=== PATIENT | female | born 1935 | race Caucasian/White ===

== ENCOUNTER 2022-01-25 04:15 | Observation (INO) | payer MEDICARE, SELFPAY ==
[2022-01-25] VITALS (18 sets, daily range): BP systolic 119–147; BP diastolic 50–83; PULSE 81–126; RESP 12–28; TEMP 36.1–36.6; O2SAT 93–100; BMI 26.0
--- NOTE | ~2022-01-25 | XR_ITS ---
EXAMINATION: XR chest 1V portable DATE: 01/25/2022 05:00 INDICATION: Shortness of breath. TECHNIQUE: A single frontal view of the chest was obtained. COMPARISON: Chest 2 views 03/26/2018, chest CT 01/25/2022 FINDINGS: Again seen is elevation of right hemidiaphragm. There is mild atelectasis at the lung bases . A calcified left lung nodule is consistent with old granulomatous disease. No pleural effusion or p neumothorax. The heart size is normal. There is a large hiatal hernia. IMPRESSION: 1. Mild atelectasis at the lung bases. 2. Large hiatal hernia. 3. Chronic elevation of right hemidiaphragm. Reviewed, dictated and finalized at location A.
--- NOTE | ~2022-01-25 | US_ITS ---
US abdomen limited DATE: 01/27/2022 14:54 INDICATION: Elevated lactic acid. Possible gallstones; high density material reported in the dependen t aspect of the gallbladder which may represent gallstones or sludge on 01/22/2022 CT abdomen pelvis e xamination. TECHNIQUE: Real-time imaging and Doppler analysis of liver, pancreas, gallbladder COMPARISON: 01/22/2022 CT abdomen pelvis FINDINGS: No hepatic or pancreatic space-occupying mass lesion is evident. No gallstones or gallbladd er wall thickening or abnormal pericholecystic fluid collection is detected. Negative sonographic Mur phy's sign. The common bile duct measures up to 3.7 mm, normal. IMPRESSION: No significant abnormality Reviewed, dictated and finalized at Location A. Reviewed, dictated and finalized at location A. IMPRESSION: No significant abnormality
--- NOTE | ~2022-01-25 | CT_ITS ---
EXAMINATION: CT brain wo con DATE: 01/25/2022 05:29 INDICATION: Face injury. TECHNIQUE: Computed tomography (CT) of the head was performed without intravenous contrast. The mA wa s adjusted according to patient size. Iterative reconstruction technique was employed. The dose-lengt h product was 605.33 mGy-cm. COMPARISON: None FINDINGS: There are scattered areas of low attenuation in the cerebral white matter. There is no intr acranial hemorrhage, acute infarction, or abnormal intracranial mass lesion. The ventricles are bibiana l in size. There are likely changes of ocular lens replacement surgeries. There is mild mucosal thick ening in the paranasal sinuses. The mastoid air cells are normal. IMPRESSION: 1. Extensive nonspecific cerebral white matter disease, which likely represents chronic small vessel ischemic disease. Reviewed, dictated and finalized at location A.
--- NOTE | ~2022-01-25 | CT_ITS ---
EXAMINATION: CT abdomen pelvis wo con DATE: 01/26/2022 13:14 INDICATION: Elevated lactic acid TECHNIQUE: Computed tomography (CT) of the abdomen and pelvis was performed without intravenous contr ast. The dose-length product was 598.75 mGy-cm. Automated exposure control and iterative reconstruction technique were employed. COMPARISON: 11/07/2011. FINDINGS: Lung bases are unremarkable. No significant pleural or pericardial effusion. Large hiatal h ernia. There is atherosclerosis of the aorta. Colonic diverticulosis without evidence for diverticuli tis. There is a ventral hernia containing nonobstructed colon. The hernia is located below the umbili cus. No obstruction. There is atherosclerosis of the aorta without aneurysm. The celiac axis and SMA are patent. The renal arteries are patent. There are chronic superior endplate compression deformitie s of T9, T10 and T11. There is severe lumbar spondylosis with levoscoliosis. The liver, spleen, pancreas, adrenal glands and kidneys are unremarkable. Colonic diverticulosis with out evidence for diverticulitis. Gallbladder is present. No free air or free fluid. There is high den sity material dependently in the gallbladder which may represent stones or sludge. IMPRESSION: 1. Large hiatal hernia. 2: Infraumbilical ventral hernia containing nonobstructed colon. 3: High density material dependently in the gallbladder may represent gallstones or sludge. Reviewed, dictated and finalized at location A. IMPRESSION: 1. Large hiatal hernia. 2: Infraumbilical ventral hernia containing nonobstructed colon. 3: High density material dependently in the gallbladder may represent gallstone s or sludge.
--- NOTE | ~2022-01-25 | CT_ITS ---
EXAMINATION: CTA chest PE protocol DATE: 01/25/2022 05:30 INDICATION: Hypoxia and tachycardia TECHNIQUE: Computed tomography angiography (CTA) of the chest was performed with 100 mL Omnipaque-350 intravenous contrast timed to evaluate the pulmonary arteries. Coronal maximum intensity projection 3D-reconstructions were created by the technologist. The dose-length product (DLP) was 361.22 mGy-cm. Automated exposure control and iterative reconstruction technique were employed. COMPARISON: 03/26/2018 FINDINGS: The pulmonary arteries are well-opacified. No pulmonary embolism is identified. There is ch ronic elevation of the right hemidiaphragm. There is a large hiatal hernia containing the entire stom ach and the tail of the pancreas. No pathologically enlarged thoracic lymph nodes are identified. The heart size is normal. The lungs are free of focal airspace opacities. No pleural effusion or pneumot horax. There is severe thoracic spondylosis. Stable chronic compression fractures are noted. IMPRESSION: 1. No pulmonary embolism or acute cardiopulmonary abnormality. Reviewed, dictated and finalized at location A.
--- NOTE | 2022-01-25 04:24 | ECG_ITS ---
Measurements Intervals [place] Rate: 102 P: 66 W[place]: 196 QRS: 39 QRSD: 74 T: 255 QT: 301 QTc: 393 Interpretive Statements SINUS TACHYCARDIA NONSPECIFIC ST & T-WAVE ABNORMALITY- LAT/HIGH LAT LEADS BASELINE ARTIFACT- I, II, III, AVR, AVL, AVF, V1-V6 BORDERLINE ECG NO PREVIOUS ECG AVAILABLE FOR COMPARISON Electronically Signed On 01-25-2022 6:35:48 CDT by Leonides Mendez D.O.
[2022-01-25 04:39] LABS: Basophils Absolute Auto 0.1 K/mm3 (0.0-0.1); Basophils Percent Auto 1.1 % (0.2-1.2); Eosinophils Absolute Auto 0.6 K/mm3 (0-0.3); Eosinophils Percent Auto 5.1 % (0-4.4); Hematocrit 43.9 % (37.0-47.0); Hemoglobin 13.7 g/dL (12.0-15.0); Immature Granulocyte Absolute 0.05 K/mm3 (0.00-0.031); Immature Granulocyte Percent A 0.4 % (0-0.5); Lymphocytes Absolute Auto 3.32 K/mm3 (0.9-3.2); Lymphocytes Percent Auto 29.5 % (18.3-44.2); Mean Corpuscular HGB Conc 31.2 g/dl (32-36); Mean Corpuscular Hemoglobin 30.2 pg (26-34); Mean Corpuscular Volume 96.9 fl (80-100); Mean Platelet Volume 10.3 fl (7.4-10.4); Monocytes Absolute Auto 0.7 K/mm3 (0.1-0.6); Monocytes Percent Auto 6.4 % (2.6-8.5); Neutrophils Absolute Auto 6.5 K/mm3 (1.3-6.7); Neutrophils Percent Auto 57.5 % (45.5-73.1); Platelet Count Result 206 k/mm3 (150-375); Red Blood Count 4.53 M/mm3 (4.2-5.4); Red Cell Distribution Width 13.9 % (11.5-14.5); White Blood Count 11.3 K/mm3 (4.5-10.0)
[2022-01-25 04:48] LABS: Alanine Aminotransferase 16 U/L (6-35); Alkaline Phosphatase 65 U/L (38-126); Anion Gap 8 mmol/L (8-16); Aspartate Amino Transferase 23 U/L (14-36); Bilirubin,Total 0.5 mg/dL (0.2-1.3); Blood Urea Nitrogen 18 mg/dL (7-17); Calcium 9.3 mg/dL (8.4-10.2); Carbon Dioxide 25 mmol/L (22-30); Chloride 105 mmol/L (98-107); Estimated CRCL calculation 39 ml/min; Estimated Glomerular Filt Rate > 60; Glucose 128 mg/dL (65-110); Potassium 4.2 mmol/L (3.4-5.0); Sodium 138 mmol/L (137-145)
[2022-01-25 05:00] LABS: NT Pro B Type Natriuretic Pept 111 pg/mL (5-100); Troponin I < 0.012 ng/mL (0.000-0.034)
[2022-01-25 05:15] LABS: SARS-CoV-2 RNA PCR Negative
[2022-01-25] MEDS: LACTATED RINGERS 1,000 ML 999 ML IV CONT (06:21)
--- NOTE | 2022-01-25 06:50 | ED.SOB ---
HPI - SOB/Dyspnea General Chief Complaint: Shortness of Breath/Dyspnea Stated Complaint: SOB Time Seen by Provider: 01/25/22 04:26 History of Present Illness HPI Narrative: 86-year-old female presents with acute onset shortness of breath several hours prior to arrival here, she was hypoxic when she arrived here and felt as if she cannot breathe. Denies any recent cough, fevers or chills, no real chest pain though does endorse some tightness, no focal numbness or weakness. No swelling in her legs Related Data Home Medications Medication Instructions Recorded Confirmed amitriptyline 75 mg tablet 75 mg PO HS 01/25/22 01/25/22 cyanocobalamin (vitamin B-12) 1,000 mcg PO DAILY 01/25/22 01/25/22 1,000 mcg tablet donepezil 5 mg tablet 5 mg PO DAILY 01/25/22 01/25/22 ergocalciferol (vitamin D2) 1,250 50,000 unit PO WEEKLY 01/25/22 01/25/22 mcg (50,000 unit) capsule gabapentin 800 mg tablet 800 mg PO DAILY 01/25/22 01/25/22 levothyroxine 100 mcg tablet 100 mcg PO DIRECTED 01/25/22 01/25/22 lisinopril 10 mg tablet 10 mg PO BID 01/25/22 01/25/22 prednisone 5 mg tablet 5 mg PO DAILY 01/25/22 01/25/22 ropinirole 1 mg tablet 1 mg PO HS 01/25/22 01/25/22 tramadol 50 mg tablet 50 mg PO HS 01/25/22 01/25/22 trazodone 50 mg tablet 50 mg PO HS 01/25/22 01/25/22 Allergies Allergy/AdvReac Type Severity Reaction Status Date / Time No Known Allergies Allergy Unknown Verified 01/25/22 07:28 Review of Systems Review of Systems: CONST: No fever. HEENT: No sore throat C/V: No chest pain RESP: Difficulty breathing GI: No nausea or vomiting : No dysuria. M/S: No joint pain. SKIN: No rash. NEURO: [No headache or focal numbness or weakness] PSYCH: [No depression] [facility] Past Medical History Medical History (Updated 01/25/22 @ 20:49 by Salima Zaragoza MD) Anemia Dementia Hypertension Hypothyroidism Macular degeneration Neuropathy Pneumonia Restless leg syndrome Vitamin D deficiency Surgical History Surgical History (Updated 01/25/22 @ 14:38 by Adrianne Gregg NP) H/O cataract extraction H/O colonoscopy H/O: hemorrhoidectomy H/O: hysterectomy History of back surgery History of bilateral knee replacement History of bladder surgery Family History Family History (Updated 01/25/22 @ 14:40 by Adrianne Gregg NP) Father Typhoid fever Sibling Throat cancer Brother Acute myocardial infarction Sister Mother Stomach cancer Social History Social History Smoking status: Never smoker Alcohol intake: never Substance use: never Substance use type: does not use Spiritual care concerns: No Exam Narrative: EXAMINATION OF ORGAN SYSTEMS/BODY AREAS: Constitutional: Vital signs per nursing GENERAL: Dyspneic HEAD: Normal with no signs of head trauma. EYES: EOMI, conjunctiva normal ENT: Hearing grossly intact LUNGS: Labored respirations, clear lungs HEART: [Regular rate and rhythm] ABD: [Soft], [nontender to palpation] EXT: Normal range of motion SKIN: [No rashes or lesions.] NEURO: [Alert and oriented x 3. No gross focal sensory or strength deficits.] PSYCH: Normal affect Course Vital Signs Vital signs: Vital Signs Temperature 97.6 F 01/25/22 04:16 Pulse Rate 117 H 01/25/22 04:16 Respiratory Rate 28 H 01/25/22 04:16 Pulse Oximetry 94 01/25/22 04:16 Oxygen Delivery Room Air 01/25/22 04:16 Temperature 97.3 F L 01/25/22 14:00 Pulse Rate 84 01/25/22 20:20 Respiratory Rate 18 01/25/22 20:20 Blood Pressure 147/83 H 01/25/22 14:00 Pulse Oximetry 96 01/25/22 14:00 Oxygen Delivery Room Air 01/25/22 20:00 Oxygen Flow Rate 6 01/25/22 07:22 MDM - SOB/Dyspnea MDM Narrative Medical decision making narrative: 86yoF p/w LILLIANA, was hypoxic on room air, and quite dyspneic on exam with clear lungs. I am concerned for possible pneumonia, doubt CHF or COPD exacerbation without any prior history of this, also considered PE, ACS. Labs obtained and a
--- NOTE | 2022-01-25 08:41 | PC.NURSE ---
Pt was on 6L O2 when this RN took report. Pt has been resting comfortably at 100%. Pt weaned down to room air and still resting comfortably with O2 93-95%.
[2022-01-25] MEDS: AZITHROMYCIN 250 MG TABLET 500 MG PO (09:11)
--- NOTE | 2022-01-25 11:46 | ADMGEN ---
This patient, Suze Howe, was admitted to 3 [facility] Surg Room 307-01 per stretcher from ER at 1120 am. Patient/family oriented to hospital policies and general routines including ID bracelet, bed and alarms, visiting hours, pain management, procedures, bathroom and other care routines, personal items, smoking policy, room service/diet, and visiting hours. Information on how to activate the Rapid Response Team has been discussed. Patient/Family are encouraged to report perceived risks to care and to ask questions if they do not understand what they are told or what they should do.
--- NOTE | 2022-01-25 14:25 | PM.IMHP ---
H&P: HPI History of Present Illness Date/Time: 01/25/22 14:25 Chief Complaint: Short of breath Narrative: This is a 86-year-old female patient who is from [facility]. The patient had shortness breath several hours prior to come to the emergency room. She was hypoxic when EMS arrived and she felt as if she could not breathe. She denied any fever chills. No chest pain. No focal weakness. No swelling in her legs. The patient was started on a BiPAP initially and she could not tolerate the BiPAP. Then she was switched to high-flow nasal cannula and was feeling much better. She is currently on room air. She was able to walk to the bathroom with a walker. Patient's chest CTA was read as no pulmonary embolism or acute cardiopulmonary abnormality. Chest x-ray was read as mild atelectasis at the lung bases. Large hiatal hernia. Chronic elevation of right hemidiaphragm. Head CT was read as extensive nonspecific cerebral white matter disease, which likely represents chronic small vessel ischemic disease. The patient was started on lactated Ringer's hand Rocephin and azithromycin for possibility of community-acquired pneumonia. The patient is currently on room air. Her white count was noted to be 11.3. She was found to be negative for COVID. The patient stated that she fell approximately 1 week ago and she has a purple bruise to her right eye. Initially the patient was admitted to inpatient status and changed to observation the date of service of 01/25/2022. Review of Systems Review of Systems: See HPI All systems reviewed & are unremarkable except as noted in HPI and below Constitutional: Constitutional: Reports as per HPI and Reports no additional constitutional complaints Eyes: Eyes: Reports as per HPI and Reports no additional eye complaints ENT: Reports system reviewed and no additional complaints, except as documented and Reports Normal hearing present Cardiovascular: Cardiovascular: Reports no additional cardiovascular complaints Respiratory: Respiratory: Reports no additional respiratory complaints and Reports no additional respiratory complaints Gastrointestinal: Gastrointestinal: Reports as per HPI and Reports no additional gastrointestinal complaints Musculoskeletal: Musculoskeletal: Reports no additional musculoskeletal complaints Integumentary/Breasts: Skin/Breast: Reports system reviewed and no additional complaints, except as docu and Reports as per HPI Neurologic: Reports system reviewed and no additional complaints, except as documented, Reports as per HPI and Reports Normal hearing present Psychiatric: Psychiatric: Reports no additional psychiatric complaints and Reports as per HPI Endocrine: Endocrine: Reports no additional endocrine complaints Hematologic/Lymphatic: Hematologic/Lymphatic: Reports no additional hematologic/lymphatic complaints Allergic/Immunologic: Allergic/Immunologic: Reports no additional allergic/immunologic complaints [facility] Past Medical History Medical History (Updated 01/25/22 @ 14:46 by Adrianne Gregg NP) Anemia Dementia Hypertension Hypothyroidism Macular degeneration Neuropathy Pneumonia Restless leg syndrome Vitamin D deficiency Surgical History Surgical History (Updated 01/25/22 @ 14:38 by Adrianne Gregg NP) H/O cataract extraction H/O colonoscopy H/O: hemorrhoidectomy H/O: hysterectomy History of back surgery History of bilateral knee replacement History of bladder surgery Family History Family History (Updated 01/25/22 @ 14:40 by Adrianne Gregg NP) Father Typhoid fever Sibling Throat cancer Brother Acute myocardial infarction Sister Mother Stomach cancer Social History Social History Smoking status: Never smoker Alcohol intake: never Substance use: never Substance use type: does not use Spiritual care concerns: No Meds Home Medications and Allergies Home Medications Medication Instructions Record
[2022-01-25] MEDS: lisinopriL 10 MG TABLET PO (17:06)
[2022-01-25] MEDS: rOPINIRole HCL 1 MG TABLET PO (20:18)
[2022-01-25] MEDS: traZODone HCL 50 MG TABLET PO (20:18)
[2022-01-25] MEDS: traMADol HCL (*CRX) 50 MG TABLET PO (20:19)
[2022-01-25] MEDS: IPRATROPIUM BR 0.02% INH SOLN 0.5 MG/2.5 ML VIAL INHALATION (20:20)
[2022-01-25] MEDS: ALBUTEROL SULFATE NEB 2.5 MG/3 ML INH INHALATION (20:20)
[2022-01-26] VITALS (15 sets, daily range): BP systolic 99–128; BP diastolic 55–63; PULSE 74–123; RESP 16–20; TEMP 36–36.6; O2SAT 95–96
[2022-01-26] MEDS: ALBUTEROL SULFATE NEB 2.5 MG/3 ML INH INHALATION ×4 (02:44→20:24)
[2022-01-26] MEDS: IPRATROPIUM BR 0.02% INH SOLN 0.5 MG/2.5 ML VIAL INHALATION ×4 (02:44→20:24)
--- NOTE | 2022-01-26 02:45 | PCRCNOTE ---
Patient refused bipap. Patient states she doesn't use it at home and therefor don't see the need for it. Patient educated on the importance of this therapy. Patient voiced understanding.
[2022-01-26] MEDS: LEVOTHYROXINE SODIUM 100 MCG TABLET PO (05:54)
[2022-01-26 06:52] LABS: Basophils Absolute Auto 0.1 K/mm3 (0.0-0.1); Eosinophils Absolute Auto 0.4 K/mm3 (0-0.3); Eosinophils Percent Auto 3.9 % (0-4.4); Hematocrit 37.1 % (37.0-47.0); Hemoglobin 11.7 g/dL (12.0-15.0); Immature Granulocyte Absolute 0.07 K/mm3 (0.00-0.031); Immature Granulocyte Percent A 0.7 % (0-0.5); Lymphocytes Absolute Auto 2.64 K/mm3 (0.9-3.2); Lymphocytes Percent Auto 25.8 % (18.3-44.2); Mean Corpuscular HGB Conc 31.5 g/dl (32-36); Mean Corpuscular Hemoglobin 29.8 pg (26-34); Mean Corpuscular Volume 94.6 fl (80-100); Mean Platelet Volume 10.5 fl (7.4-10.4); Monocytes Absolute Auto 0.9 K/mm3 (0.1-0.6); Monocytes Percent Auto 9.2 % (2.6-8.5); Neutrophils Absolute Auto 6.1 K/mm3 (1.3-6.7); Neutrophils Percent Auto 59.4 % (45.5-73.1); Platelet Count Result 201 k/mm3 (150-375); Red Blood Count 3.92 M/mm3 (4.2-5.4); White Blood Count 10.2 K/mm3 (4.5-10.0)
[2022-01-26 07:00] LABS: Lactic Acid Reflex 2.4 mmol/L (0.7-2.0)
[2022-01-26 07:07] LABS: Alanine Aminotransferase 16 U/L (6-35); Albumin Level 3.3 g/dL (3.5-5.1); Alkaline Phosphatase 55 U/L (38-126); Anion Gap 10 mmol/L (8-16); Aspartate Amino Transferase 20 U/L (14-36); Bilirubin,Total 0.4 mg/dL (0.2-1.3); Blood Urea Nitrogen 13 mg/dL (7-17); Calcium 8.9 mg/dL (8.4-10.2); Carbon Dioxide 25 mmol/L (22-30); Chloride 104 mmol/L (98-107); Estimated CRCL calculation 39 ml/min; Estimated Glomerular Filt Rate > 60; Glucose 116 mg/dL (65-110); Lactate Dehydrogenase 116 U/L (120-246); Magnesium 1.8 mg/dL (1.6-2.3); Potassium 3.6 mmol/L (3.4-5.0); Sodium 139 mmol/L (137-145)
[2022-01-26] MEDS: GABAPENTIN 400 MG CAPSULE 800 MG PO (08:17)
[2022-01-26] MEDS: CYANOCOBALAMIN 1,000 MCG TABLET 1000 MCG PO (08:17)
[2022-01-26] MEDS: DONEPEZIL HCL 5 MG TABLET PO (08:17)
[2022-01-26] MEDS: AMITRIPTYLINE HCL 25 MG TABLET 75 MG PO (08:17)
[2022-01-26] MEDS: lisinopriL 10 MG TABLET PO ×2 (08:18→17:52)
[2022-01-26 09:46] LABS: Reflex Lactic Acid Yes or No Add Lactic
[2022-01-26 10:19] LABS: Lactic Acid 4.3 mmol/L (0.7-2.0)
[2022-01-26] MEDS: LACTATED RINGERS 1,000 ML 999 ML IV CONT (11:37)
--- NOTE | 2022-01-26 11:45 | PM.IMPN ---
Progress Note: A&P Assessment and Plan (1) Pneumonia: Code(s): J18.9 - Pneumonia, unspecified organism Status: Acute Assessment and Plan: -sputum and blood cultures are pending -Continue azithromycin Rocephin for now -she is currently on room air and speaking in full sentences. She is no longer hypoxic. -CTA was negative for PE. -nebulizer treatment with DuoNeb (2) Hypothyroidism: Code(s): E03.9 - Hypothyroidism, unspecified Status: Acute Assessment and Plan: -thyroid level 2.530 -continue levothyroxine (3) Hypertension: Code(s): I10 - Essential (primary) hypertension Status: Acute Assessment and Plan: -current BP is 115/57 -continue with lisinopril -Trend BP -Adjust therapy as indicated (4) Dementia: Code(s): F03.90 - Unspecified dementia without behavioral disturbance Status: Acute Assessment and Plan: -continue with donepezil -continue with amitriptyline (5) Anemia: Code(s): D64.9 - Anemia, unspecified Status: Acute Assessment and Plan: Current H/H stable at 11.7/32.1 Trend labs Transfuse if <7.0 (6) Neuropathy: Code(s): G62.9 - Polyneuropathy, unspecified Status: Acute Assessment and Plan: -continue with gabapentin (7) Restless leg syndrome: Code(s): G25.81 - Restless legs syndrome Status: Acute Assessment and Plan: -continue with ropinirole (8) Vitamin D deficiency: Code(s): E55.9 - Vitamin D deficiency, unspecified Status: Acute Assessment and Plan: -continue with vitamin-D (9) Macular degeneration: Code(s): H35.30 - Unspecified macular degeneration Status: Acute Assessment and Plan: -continue with current treatment (10) Cholelithiasis: Code(s): K80.20 - Calculus of gallbladder without cholecystitis without obstruction Status: Acute Assessment and Plan: CT indicates possible stones or sludge RUQ ultrasound ordered Consider general surgery Could be why the lactic is continuing to rise. (11) Lactic acidosis: Code(s): E87.2 - Acidosis Status: Acute Assessment and Plan: Lactic acid is 4.3 Give LR x one liter Repeat lactic acid No real signs of why this is elevated Continue to trend Ct of the abd/pel shows gallstones and/or sludge Time Spent With Patient Time with patient: Greater than 35 minutes Subjective Date/time seen: 01/26/22 1145 Interval history: 01/26/22 1145 Patient stated that she is doing okay today. She denies any complaints and is ready to go home however her lactic acid is 4.3 today. Patient denies any pain, nausea, vomiting, diarrhea, constipation, weakness, fatigue, chest pain, shortness of breath all she said was she had hernia. Giving patient 1L of LR and going to get a ct of the abdomen 01/25/22? 1145 This is a 86-year-old female patient who is from [facility].? The patient had shortness breath several hours prior to come to the emergency room.? She was hypoxic when EMS arrived and she felt as if she could not breathe.? She denied any fever chills.? No chest pain.? No focal weakness.? No swelling in her legs.? The patient was started on a BiPAP initially and she could not tolerate the BiPAP.? Then she was switched to high-flow nasal cannula and was feeling much better.? She is currently on room air.? She was able to walk to the bathroom with a walker.? Patient's chest CTA was read as no pulmonary embolism or acute cardiopulmonary abnormality.? Chest x-ray was read as mild atelectasis at the lung bases.? Large hiatal hernia.? Chronic elevation of right hemidiaphragm.? Head CT was read as extensive nonspecific cerebral white matter disease, which likely represents chronic small vessel ischemic disease.? The patient was started on lactated Ringer's hand Roce
[2022-01-26] MEDS: LACTATED RINGERS 1,000 ML 75 ML IV CONT (15:03)
[2022-01-26 15:14] LABS: Lactic Acid Reflex 2.7 mmol/L (0.7-2.0)
[2022-01-26] MEDS: rOPINIRole HCL 1 MG TABLET PO (20:42)
[2022-01-26] MEDS: traMADol HCL (*CRX) 50 MG TABLET PO (20:42)
[2022-01-26] MEDS: traZODone HCL 50 MG TABLET PO (20:42)
[2022-01-27] VITALS (17 sets, daily range): BP systolic 131–157; BP diastolic 61–87; PULSE 58–102; RESP 16–18; TEMP 36.2–36.4; O2SAT 93–98
[2022-01-27] MEDS: ALBUTEROL SULFATE NEB 2.5 MG/3 ML INH INHALATION ×3 (02:28→14:52)
[2022-01-27] MEDS: IPRATROPIUM BR 0.02% INH SOLN 0.5 MG/2.5 ML VIAL INHALATION ×3 (02:28→14:52)
[2022-01-27 06:23] LABS: Basophils Absolute Auto 0.1 K/mm3 (0.0-0.1); Basophils Percent Auto 0.9 % (0.2-1.2); Eosinophils Absolute Auto 0.5 K/mm3 (0-0.3); Eosinophils Percent Auto 5.9 % (0-4.4); Hematocrit 36.2 % (37.0-47.0); Hemoglobin 11.2 g/dL (12.0-15.0); Immature Granulocyte Absolute 0.03 K/mm3 (0.00-0.031); Immature Granulocyte Percent A 0.3 % (0-0.5); Lymphocytes Absolute Auto 2.52 K/mm3 (0.9-3.2); Lymphocytes Percent Auto 28.1 % (18.3-44.2); Mean Corpuscular HGB Conc 30.9 g/dl (32-36); Mean Corpuscular Hemoglobin 29.9 pg (26-34); Mean Corpuscular Volume 96.5 fl (80-100); Mean Platelet Volume 10.1 fl (7.4-10.4); Monocytes Percent Auto 10.7 % (2.6-8.5); Neutrophils Absolute Auto 4.8 K/mm3 (1.3-6.7); Neutrophils Percent Auto 54.1 % (45.5-73.1); Platelet Count Result 180 k/mm3 (150-375); Red Blood Count 3.75 M/mm3 (4.2-5.4); Red Cell Distribution Width 14.1 % (11.5-14.5)
[2022-01-27 06:46] LABS: Alanine Aminotransferase 15 U/L (6-35); Albumin Level 3.2 g/dL (3.5-5.1); Alkaline Phosphatase 55 U/L (38-126); Anion Gap 7 mmol/L (8-16); Aspartate Amino Transferase 19 U/L (14-36); Bilirubin,Total 0.4 mg/dL (0.2-1.3); Blood Urea Nitrogen 9 mg/dL (7-17); Calcium 8.6 mg/dL (8.4-10.2); Carbon Dioxide 25 mmol/L (22-30); Chloride 106 mmol/L (98-107); Creatine Kinase 45 U/L (30-135); Estimated CRCL calculation 44 ml/min; Estimated Glomerular Filt Rate > 60; Glucose 105 mg/dL (65-110); Magnesium 1.9 mg/dL (1.6-2.3); Potassium 3.9 mmol/L (3.4-5.0); Sodium 138 mmol/L (137-145)
--- NOTE | 2022-01-27 10:30 | PM.IMPN ---
Progress Note: A&P Assessment and Plan (1) Pneumonia: Code(s): J18.9 - Pneumonia, unspecified organism Status: Acute Assessment and Plan: -sputum culture not collected -blood cultures negative -DC antibiotics as she does not really represent PNA azithromycin Rocephin for now -she is currently on room air and speaking in full sentences. She is no longer hypoxic. -CTA was negative for PE. -nebulizer treatment with DuoNeb (2) Hypothyroidism: Code(s): E03.9 - Hypothyroidism, unspecified Status: Acute Assessment and Plan: -thyroid level 2.530 -continue levothyroxine (3) Hypertension: Code(s): I10 - Essential (primary) hypertension Status: Acute Assessment and Plan: -current BP is 140/84 -continue with lisinopril -Trend BP -Adjust therapy as indicated (4) Dementia: Code(s): F03.90 - Unspecified dementia without behavioral disturbance Status: Acute Assessment and Plan: -continue with donepezil -continue with amitriptyline (5) Anemia: Code(s): D64.9 - Anemia, unspecified Status: Acute Assessment and Plan: Current H/H stable at 12.5/37.4 Trend labs Transfuse if <7.0 (6) Neuropathy: Code(s): G62.9 - Polyneuropathy, unspecified Status: Acute Assessment and Plan: -continue with gabapentin (7) Restless leg syndrome: Code(s): G25.81 - Restless legs syndrome Status: Acute Assessment and Plan: -continue with ropinirole (8) Vitamin D deficiency: Code(s): E55.9 - Vitamin D deficiency, unspecified Status: Acute Assessment and Plan: -continue with vitamin-D (9) Macular degeneration: Code(s): H35.30 - Unspecified macular degeneration Status: Acute Assessment and Plan: -continue with current treatment (10) Cholelithiasis: Code(s): K80.20 - Calculus of gallbladder without cholecystitis without obstruction Status: Acute Assessment and Plan: CT indicates possible stones or sludge RUQ ultrasound ordered Consider general surgery Could be why the lactic is continuing to rise. (11) Lactic acidosis: Code(s): E87.2 - Acidosis Status: Acute Assessment and Plan: Lactic acid is 4.3, repeat 2.7 Give LR x one liter No real signs of why this is elevated Continue to trend Ct of the abd/pel shows gallstones and/or sludge RUQ ordered Blood cultures NGTD WBC 8.2 Time Spent With Patient Time with patient: Greater than 35 minutes Subjective Date/time seen: 01/27/22 1030 Interval history: 01/27/22 1030 Patient seems to be comfortable at this time. She did state that her arm on the left where the IV was going and does hurt a little bit. She denies any chest pain, shortness of breath, nausea, vomiting, diarrhea, weakness or fatigue. still awaiting right upper quadrant ultrasound. Explained to patient she will need to see General surgery as well probably outpatient. CT of the abdomen and pelvis showed large hernia, infraumbilical ventral hernia containing nonobstructive: And high density material in the gallbladder representing either gallbladders sludge or gallstones She did state that she was constipated and stated that her last BM was last . Senna and miralax ordered 01/26/22 1145 Patient stated that she is doing okay today. She denies any complaints and is ready to go home however her lactic acid is 4.3 today. Patient denies any pain, nausea, vomiting, diarrhea, constipation, weakness, fatigue, chest pain, shortness of breath all she said was she had hernia. Giving patient 1L of LR and going to get a ct of the abdomen 01/25/22? 1145 This is a 86-year-old female patient who is from [facility].? The patient had shortness breath several hours prior to come to the emergency room.?
[2022-01-27] MEDS: LACTATED RINGERS 1,000 ML 75 ML IV CONT (11:05)
[2022-01-27] MEDS: AMITRIPTYLINE HCL 25 MG TABLET 75 MG PO (14:09)
[2022-01-27] MEDS: CYANOCOBALAMIN 1,000 MCG TABLET 1000 MCG PO (14:11)
[2022-01-27] MEDS: DONEPEZIL HCL 5 MG TABLET PO (14:14)
[2022-01-27] MEDS: ENOXAPARIN 40 MG/0.4 ML SYRINGE SUB-Q (14:14)
[2022-01-27] MEDS: GABAPENTIN 400 MG CAPSULE 800 MG PO (14:15)
[2022-01-27] MEDS: ERGOCALCIFEROL 50,000 UNIT CAPSULE 50000 UNITS PO (14:15)
[2022-01-27] MEDS: lisinopriL 10 MG TABLET PO ×2 (14:16→17:59)
[2022-01-27] MEDS: polyethylene glycoL 3350 17 GM POWD.PACK PO (14:18)
[2022-01-27] MEDS: SENNA/DOCUSATE SODIUM TABLET 1 TAB PO (14:18)
--- NOTE | 2022-01-27 14:42 | PC.NURSE ---
pt received Azithromycin dose as prescribed. Issues with Psydex eMAR.
--- NOTE | 2022-01-27 20:08 | PCRCNOTE ---
pt refusing 1999 UPD on 01/27. RT listened to patient and pt is clear/diminished and in no distress. RT advised pt to call for treatment if in need of one.
[2022-01-27] MEDS: rOPINIRole HCL 1 MG TABLET PO (21:10)
[2022-01-27] MEDS: traMADol HCL (*CRX) 50 MG TABLET PO (21:10)
[2022-01-27] MEDS: traZODone HCL 50 MG TABLET PO (21:10)
[2022-01-28] VITALS (11 sets, daily range): BP systolic 114; BP diastolic 66; PULSE 83–98; RESP 16–17; TEMP 35.7; O2SAT 92–98
[2022-01-28] MEDS: IPRATROPIUM BR 0.02% INH SOLN 0.5 MG/2.5 ML VIAL INHALATION ×3 (02:14→14:17)
[2022-01-28] MEDS: ALBUTEROL SULFATE NEB 2.5 MG/3 ML INH INHALATION ×3 (02:14→14:17)
[2022-01-28] MEDS: LACTATED RINGERS 1,000 ML 75 ML IV CONT (03:07)
[2022-01-28] MEDS: LEVOTHYROXINE SODIUM 100 MCG TABLET PO (05:49)
[2022-01-28 06:42] LABS: Basophils Absolute Auto 0.1 K/mm3 (0.0-0.1); Basophils Percent Auto 0.7 % (0.2-1.2); Eosinophils Absolute Auto 0.6 K/mm3 (0-0.3); Eosinophils Percent Auto 7.3 % (0-4.4); Hematocrit 34.5 % (37.0-47.0); Hemoglobin 10.8 g/dL (12.0-15.0); Immature Granulocyte Absolute 0.04 K/mm3 (0.00-0.031); Immature Granulocyte Percent A 0.5 % (0-0.5); Lymphocytes Percent Auto 31.4 % (18.3-44.2); Mean Corpuscular HGB Conc 31.3 g/dl (32-36); Mean Corpuscular Hemoglobin 30.4 pg (26-34); Mean Corpuscular Volume 97.2 fl (80-100); Mean Platelet Volume 10.6 fl (7.4-10.4); Monocytes Absolute Auto 0.9 K/mm3 (0.1-0.6); Neutrophils Absolute Auto 4.3 K/mm3 (1.3-6.7); Neutrophils Percent Auto 50.1 % (45.5-73.1); Platelet Count Result 167 k/mm3 (150-375); Red Blood Count 3.55 M/mm3 (4.2-5.4); White Blood Count 8.6 K/mm3 (4.5-10.0)
[2022-01-28 06:56] LABS: Alanine Aminotransferase 13 U/L (6-35); Alkaline Phosphatase 54 U/L (38-126); Anion Gap 3 mmol/L (8-16); Aspartate Amino Transferase 20 U/L (14-36); Bilirubin,Total 0.5 mg/dL (0.2-1.3); Blood Urea Nitrogen 7 mg/dL (7-17); Calcium 8.9 mg/dL (8.4-10.2); Carbon Dioxide 27 mmol/L (22-30); Chloride 106 mmol/L (98-107); Estimated CRCL calculation 44 ml/min; Estimated Glomerular Filt Rate > 60; Glucose 94 mg/dL (65-110); Potassium 4.2 mmol/L (3.4-5.0); Sodium 136 mmol/L (137-145)
[2022-01-28 08:56] LABS: Iron 55 ug/dL (37-170)
[2022-01-28 09:05] LABS: Percent Iron Saturation 23 % (20-50)
[2022-01-28 09:09] LABS: Transferrin 166 mg/dL (206-381)
[2022-01-28] MEDS: SENNA/DOCUSATE SODIUM TABLET 1 TAB PO (09:14)
[2022-01-28] MEDS: ENOXAPARIN 40 MG/0.4 ML SYRINGE SUB-Q (09:14)
[2022-01-28] MEDS: CYANOCOBALAMIN 1,000 MCG TABLET 1000 MCG PO (09:14)
[2022-01-28] MEDS: AMITRIPTYLINE HCL 25 MG TABLET 75 MG PO (09:14)
[2022-01-28] MEDS: GABAPENTIN 400 MG CAPSULE 800 MG PO (09:14)
[2022-01-28] MEDS: DONEPEZIL HCL 5 MG TABLET PO (09:14)
[2022-01-28] MEDS: lisinopriL 10 MG TABLET PO (09:14)
--- NOTE | 2022-01-28 09:45 | PM.DS ---
DS: Admitting Diagnosis Discharge Date 01/28/22 0945 Admitting Diagnosis PNA/Lacticacidosis DS: Discharge Diagnosis Discharge Diagnosis (1) Pneumonia: Code(s): J18.9 - Pneumonia, unspecified organism Status: Acute Assessment and Plan: -sputum culture not collected -blood cultures negative -DC antibiotics as she does not really represent PNA azithromycin Rocephin for now -she is currently on room air and speaking in full sentences. She is no longer hypoxic. -CTA was negative for PE. -nebulizer treatment with DuoNeb (2) Hypothyroidism: Code(s): E03.9 - Hypothyroidism, unspecified Status: Acute Assessment and Plan: -thyroid level 2.530 -continue levothyroxine (3) Hypertension: Code(s): I10 - Essential (primary) hypertension Status: Acute Assessment and Plan: -current BP is 114/66 -continue with lisinopril -Trend BP -Adjust therapy as indicated (4) Dementia: Code(s): F03.90 - Unspecified dementia without behavioral disturbance Status: Acute Assessment and Plan: -continue with donepezil -continue with amitriptyline (5) Anemia: Code(s): D64.9 - Anemia, unspecified Status: Acute Assessment and Plan: Current H/H stable at 10.8/34.5 Trend labs Transfuse if <7.0 (6) Neuropathy: Code(s): G62.9 - Polyneuropathy, unspecified Status: Acute Assessment and Plan: -continue with gabapentin (7) Restless leg syndrome: Code(s): G25.81 - Restless legs syndrome Status: Acute Assessment and Plan: -continue with ropinirole (8) Vitamin D deficiency: Code(s): E55.9 - Vitamin D deficiency, unspecified Status: Acute Assessment and Plan: -continue with vitamin-D (9) Macular degeneration: Code(s): H35.30 - Unspecified macular degeneration Status: Acute Assessment and Plan: -continue with current treatment (10) Cholelithiasis: Code(s): K80.20 - Calculus of gallbladder without cholecystitis without obstruction Status: Acute Assessment and Plan: CT indicates possible stones or sludge RUQ ultrasound showed no stones or sludge with normal common bile duct Consider general surgery Could be why the lactic is continuing to rise. (11) Lactic acidosis: Code(s): E87.2 - Acidosis Status: Acute Assessment and Plan: Lactic acid is 4.3, repeat 2.7 Give LR x one liter No real signs of why this is elevated Continue to trend Ct of the abd/pel shows gallstones and/or sludge RUQ ordered Blood cultures NGTD WBC 8.6 DS: Summary Hospital Course Hospital Course: Patient is a 6-year-old female with past medical history of anemia, dementia, hypertension, pneumonia, who presented to the ED with complaints of shortness of breath. Upon arrival from EMS patient was noted to be hypoxic and was placed on supplemental oxygen. When she arrived patient was placed on BiPAP however she was unable to tolerate the BiPAP and was changed to high-flow nasal cannula. Patient has been weaned to room air and has no current complaints of shortness of breath. CTA was performed and showed no pulmonary embolism or acute cardiopulmonary abnormality. Chest x-ray was read as mild atelectasis. Patient was placed on IV antibiotics for possible pneumonia. White blood cell count was noted to be 11.3 upon arrival. COVID was negative. Lactic acid was elevated 4 point 3. Patient was given IV fluids and lactic was repeated and came back 2.7. CT of the abdomen and pelvis showed gallstones or sludge. Right upper quadrant ultrasound showed no gallstones or issues in the gallbladder. White blood cell count was 8.2. Patient currently is stable and is ready for discharge. Labs and vital signs are stable. Patient returning to [facility]. Status at [facility]
[2022-01-28 10:10] LABS: Folic Acid > 20.0 ng/mL (2.76->20)
[2022-01-28 13:12] LABS: Vitamin B12 > 1000.0 pg/mL (239-931)
[2022-01-28 14:55] LABS: EDCOVIDSCREEN Negative (Negative)
--- NOTE | 2022-01-28 15:20 | PC.NURSE ---
pt going home to assisted living at [facility] in [place], discharge instructions faxed over
== END 2022-01-28 15:20 ==
LOC: ANHED 05:16 → ANH3MEDSUR 11:46
PROVIDERS: Nurse Practitioner; Admitting Provider Family Medicine; Emergency Provider Emergency Medicine; Visit Provider Nurse Practitioner
DX: J18.9 Pneumonia, unspecified organism (principal); J96.01 Acute respiratory failure with hypoxia; E87.2 Acidosis; K80.20 Calculus of gallbladder without cholecystitis without obstruction; I10 Essential (primary) hypertension; E03.9 Hypothyroidism, unspecified; F03.90 Unspecified dementia, unspecified severity, without behavioral disturbance, psychotic disturbance, mood disturbance, and anxiety; D64.9 Anemia, unspecified; G62.9 Polyneuropathy, unspecified; E55.9 Vitamin D deficiency, unspecified; G25.81 Restless legs syndrome; H35.30 Unspecified macular degeneration; Z20.822 Contact with and (suspected) exposure to COVID-19
CPT/HCPCS: 36415; 70450; 71045; 71275; 74176; 76705; 80053; 82550; 82607; 82728; 82746; 83540; 83550; 83605; 83615; 83735; 83880; 84443; 84466; 84484; 85025; 87040; 87426; 93005; 94002; 94640; 96361; 96365; 96366; 96372; 96376; 99285; A9270; C9803; G0378; J0456; J0696; J1650; J7120; Q9967; U0003; U0005

== ENCOUNTER 2022-10-14 16:27 | Inpatient (IN) | payer MEDICARE, SELFPAY ==
[2022-10-14] VITALS (16 sets, daily range): BP systolic 74–148; BP diastolic 45–73; PULSE 76–110; RESP 11–21; TEMP 36.2–36.6; O2SAT 93–100; BMI 26.4
--- NOTE | ~2022-10-14 | XR_ITS ---
EXAMINATION: XR chest 1V portable Exam Date/Time: 10/14/2022 17:15 CDT HISTORY: low blood pressure DIARRHEA X 1 DAY Comparison: 01/25/2022. RESULT: Lines, tubes, and devices: None. Lungs and pleura: Patchy subsegmental right basilar opacities. Mild right costophrenic angle bluntin g. Cardiomediastinal silhouette: Stable. Large hiatal hernia and unchanged right hemidiaphragm elevatio n. Other: No acute osseous or upper abdominal finding. IMPRESSION: Right basilar atelectasis/consolidation. Possible small right pleural effusion. Reviewed, dictated and finalized at location K.
--- NOTE | 2022-10-14 16:38 | ECG_ITS ---
Measurements Intervals [place] Rate: 97 P: 23 ND: 200 QRS: 17 QRSD: 65 T: 19 QT: 341 QTc: 435 Interpretive Statements SINUS RHYTHM BASELINE ARTIFACT LOW QRS VOLTAGE IN PRECORDIAL LEADS BORDERLINE ECG COMPARED TO ECG 01/25/2022 04:29:26 HEART RATE HAS DECREASED Electronically Signed On 10-14-2022 17:21:24 CDT by Russ Mariee M.D.
--- NOTE | 2022-10-14 17:05 | ED.GENADULT ---
HPI - General Adult General Chief complaint: Weakness Stated complaint: low oxygen Time Seen by Provider: 10/14/22 16:53 History of Present Illness HPI narrative: Patient is an 86-year-old female who presents ER with weakness and diarrhea. Patient had sudden onset diarrhea around noon and reports just water is coming out of her bottom. It is not dark black and it does not contain blood. She has no abdominal pain. No fevers or chills or sweats. She has not recently been on any antibiotics. No known sick contacts. Upon arrival patient found to be hypotensive in triage. Patient reports she only ate pancakes today. Related Data Home Medications Medication Instructions Recorded Confirmed amitriptyline 75 mg tablet 75 mg PO HS 01/25/22 01/25/22 cyanocobalamin (vitamin B-12) 1,000 mcg PO DAILY 01/25/22 01/25/22 1,000 mcg tablet donepezil 5 mg tablet 5 mg PO DAILY 01/25/22 01/25/22 ergocalciferol (vitamin D2) 1,250 50,000 unit PO WEEKLY 01/25/22 01/25/22 mcg (50,000 unit) capsule gabapentin 800 mg tablet 800 mg PO DAILY 01/25/22 01/25/22 levothyroxine 100 mcg tablet 100 mcg PO DIRECTED 01/25/22 01/25/22 lisinopril 10 mg tablet 10 mg PO BID 01/25/22 01/25/22 prednisone 5 mg tablet 5 mg PO DAILY 01/25/22 01/25/22 ropinirole 1 mg tablet 1 mg PO HS 01/25/22 01/25/22 tramadol 50 mg tablet 50 mg PO HS 01/25/22 01/25/22 trazodone 50 mg tablet 50 mg PO HS 01/25/22 01/25/22 Allergies Allergy/AdvReac Type Severity Reaction Status Date / Time No Known Allergies Allergy Unknown Verified 01/25/22 07:28 Review of Systems Review of Systems: All systems reviewed & are unremarkable except as noted in HPI and below Constitutional: Constitutional: Denies chills, Reports fatigue and Denies fever(s) ENT: Denies nasal congestion and Denies sore throat Cardiovascular: Cardiovascular: Denies chest pain, Denies rapid heart rate and Denies radiating jaw, neck or arm pain Respiratory: Respiratory: Denies cough and Denies dyspnea Gastrointestinal: Gastrointestinal: Denies abdominal pain, Reports diarrhea, Denies nausea and Denies vomiting Genitourinary: Genitourinary: Denies nocturia and Denies dysuria Neurologic: Denies syncope PMFSH Past Medical History Medical History (Updated 10/14/22 @ 19:21 by Steve Byers MD) Anemia Dementia Hypertension Hypothyroidism Macular degeneration Neuropathy Pneumonia Restless leg syndrome Vitamin D deficiency Surgical History Surgical History (Updated 01/25/22 @ 14:38 by Adrianne Gregg NP) H/O cataract extraction H/O colonoscopy H/O: hemorrhoidectomy H/O: hysterectomy History of back surgery History of bilateral knee replacement History of bladder surgery Family History Family History (Updated 01/25/22 @ 14:40 by Adrianne Gregg NP) Father Typhoid fever Sibling Throat cancer Brother Acute myocardial infarction Sister Mother Stomach cancer Social History Social History Smoking status: Never smoker Alcohol intake: never Substance use: never Substance use type: does not use Spiritual care concerns: No Exam Narrative: GENERAL: Well-appearing, well-nourished, and in mild distress. HEAD: Normocephalic, atraumatic. EYES: PERRL and EOMI. ENT: Mucous membranes moist. CHEST: Clear to auscultation. No respiratory distress. HEART: Regular rate and rhythm. Normal peripheral pulses. ABDOMEN: Soft, nontender, nondistended. EXTREMITIES: Normal range of motion. No edema. SKIN: Warm, dry, no rash. NEURO: Alert and oriented x2-3. PSYCH: Normal mood and affect. Course Course Emergency Course: Patient responding to 30 mL/kg bolus for sepsis and hypotension. Blood pressure improved. Patient declines central line should her blood pressure drop. She reports she is a DNR. Family present and comfortable with these decisions. Patient has been accepted for hospitalist admission. Vital Signs Vital signs: Vital Signs Tempera
[2022-10-14] MEDS: SODIUM CHLORIDE 0.9% IV 2,000 ML/1,000 ML BAG 999 ML IV CONT ×2 (17:12→18:16)
[2022-10-14 17:17] LABS: Basophils Absolute Auto 0.1 K/mm3 (0.0-0.1); Basophils Percent Auto 0.5 % (0.2-1.2); Eosinophils Absolute Auto 0.2 K/mm3 (0-0.3); Eosinophils Percent Auto 1.3 % (0-4.4); Hematocrit 42.8 % (37.0-47.0); Hemoglobin 13.3 g/dL (12.0-15.0); Immature Granulocyte Absolute 0.15 K/mm3 (0.00-0.031); Immature Granulocyte Percent A 0.9 % (0-0.5); Lymphocytes Absolute Auto 3.62 K/mm3 (0.9-3.2); Lymphocytes Percent Auto 21.8 % (18.3-44.2); Mean Corpuscular HGB Conc 31.1 g/dl (32-36); Mean Corpuscular Volume 96.4 fl (80-100); Mean Platelet Volume 10.3 fl (7.4-10.4); Monocytes Absolute Auto 1.3 K/mm3 (0.1-0.6); Monocytes Percent Auto 7.7 % (2.6-8.5); Neutrophils Absolute Auto 11.2 K/mm3 (1.3-6.7); Neutrophils Percent Auto 67.8 % (45.5-73.1); Platelet Count Result 269 k/mm3 (150-375); Red Blood Count 4.44 M/mm3 (4.2-5.4); Red Cell Distribution Width 14.3 % (11.5-14.5); White Blood Count 16.6 K/mm3 (4.5-10.0)
[2022-10-14 17:27] LABS: Alanine Aminotransferase 23 U/L (6-35); Albumin Level 4.2 g/dL (3.5-5.1); Alkaline Phosphatase 68 U/L (38-126); Anion Gap 13 mmol/L (8-16); Aspartate Amino Transferase 27 U/L (14-36); Bilirubin,Total 0.4 mg/dL (0.2-1.3); Blood Urea Nitrogen 25 mg/dL (7-17); Calcium 9.1 mg/dL (8.4-10.2); Carbon Dioxide 25 mmol/L (22-30); Chloride 100 mmol/L (98-107); Estimated CRCL calculation 17 ml/min; Estimated Glomerular Filt Rate 25; Glucose 160 mg/dL (65-110); Potassium 4.5 mmol/L (3.4-5.0); Sodium 138 mmol/L (137-145)
[2022-10-14 17:32] LABS: CRP 1.1 mg/dL (<1.0)
[2022-10-14 17:35] LABS: Prothrombin Time 13.4 Seconds (11.1-14.7)
[2022-10-14 17:36] LABS: Partial Thromboplastin Time 25.4 SECONDS (22.3-36.8)
[2022-10-14 18:15] LABS: Appearance Urine Clear (Clear); Bilirubin Urine Negative (Negative); Blood Urine Negative (Negative); Color Urine Yellow (Yellow); Glucose Urine UA Negative (Negative); Ketones Urine Negative (Negative); Leukocyte Esterase Ur Negative LEU/UL (Negative); Nitrate Urine Negative (Negative); Protein Urine Negative (Negative); Specific Grav Ur 1.011 (1.001-1.035); Urobilinogen Urine 0.2 mg/dL (<2.0)
[2022-10-14 18:22] LABS: Lactic Acid Reflex 3.2 mmol/L (0.7-2.0)
[2022-10-14 18:30] LABS: Add Urine Microscopic? NO
[2022-10-14] MEDS: SODIUM CHLORIDE 0.9% IV 1,000 ML 125 ML IV CONT (20:26)
--- NOTE | 2022-10-14 20:38 | ADMGEN ---
This patient, Suze Howe, was admitted to IMU Room 200-01. Patient/family oriented to hospital policies and general routines including ID bracelet, bed and alarms, visiting hours, pain management, procedures, bathroom and other care routines, personal items, smoking policy, room service/diet, and visiting hours. Information on how to activate the Rapid Response Team has been discussed. Patient/Family are encouraged to report perceived risks to care and to ask questions if they do not understand what they are told or what they should do.
[2022-10-14 21:08] LABS: Reflex Lactic Acid Yes or No Add Lactic
[2022-10-14 21:37] LABS: Lactic Acid 1.4 mmol/L (0.7-2.0)
[2022-10-15] VITALS (8 sets, daily range): BP systolic 129–138; BP diastolic 60–69; PULSE 90–110; RESP 14–20; TEMP 36.5–36.9; O2SAT 95–100
[2022-10-15 03:46] LABS: Toxigenic C. Diff NEGATIVE (NEGATIVE)
--- NOTE | 2022-10-15 05:20 | PM.IMHP ---
H&P: HPI History of Present Illness Date/Time: 10/15/22 02:20 Chief Complaint: Diarrhea Narrative: 86-year-old female with a past medical history of mild dementia, hypothyroidism and hypertension who presented to the ER with diarrhea. The patient reported that symptoms started around 11:00 on the day of presentation. The patient reports that she was lying in her bed at the assisted living when she suddenly realized that she had been incontinent frankly watery stool in bed. She then proceeded to have multiple diarrheal stools that were brown in color. She became profoundly weak and dizzy and had a fall at her living facility. She was brought into the ER in a wheelchair and on initial arrival to the ER her pulse ox was recorded as 75% but on repeat evaluation on room air her oxygen saturation was greater than 95%. On initial presentation to the ER she was hypotensive but responded well to a 30 mL/kilos bolus and has since been normotensive. Since admission the patient has continued to have multiple frankly watery stools. One of which was incontinent. She had does not know if any by at this is the living is been ill. She has not had any fevers or chills. She denies any abdominal pain with the diarrhea. She has not had recent antibiotic therapy. She denies any headache or vision changes. She denies any associated nausea or vomiting. Review of Systems Review of Systems: 12 systems were reviewed with pertinent positives and negatives per HPI. Except as documented in the HPI, all other systems were reviewed and are negative. [facility] Past Medical History Medical History (Updated 10/15/22 @ 05:40 by Naima Harmon DO) Anemia Dementia Hypertension Hypothyroidism Macular degeneration Neuropathy Pneumonia Restless leg syndrome Type 2 diabetes mellitus Vitamin D deficiency Surgical History Surgical History (Updated 10/15/22 @ 05:30 by Naima Harmon DO) H/O cataract extraction H/O colonoscopy H/O: hemorrhoidectomy H/O: hysterectomy History of back surgery History of bilateral knee replacement History of bladder suspension procedure Family History Family History Father Typhoid fever Sibling Throat cancer Brother Acute myocardial infarction Sister Mother Stomach cancer Social History Social History Smoking status: Former smoker Alcohol intake: never Substance use: never Substance use type: does not use Lack of Transportation: No Lack of Food: Never True Current Housing: Decline to Answer Concerned About Future Housing: Decline to Answer Difficulty Paying Gas/Electric Bills: Decline to Answer Difficulty Paying for Meds: Decline to Answer Currently Unemployed: Decline to Answer Education: Decline to Answer Difficulty w/ Childcare or Family Care: Decline to Answer Spiritual care concerns: No Meds Home Medications and Allergies Home Medications Medication Instructions Recorded Confirmed Type amitriptyline 75 mg tablet 75 mg PO HS 01/25/22 10/14/22 History cyanocobalamin (vitamin B-12) 1,000 mcg PO DAILY 01/25/22 10/14/22 History 1,000 mcg tablet donepezil 5 mg tablet 5 mg PO DAILY 01/25/22 10/14/22 History ergocalciferol (vitamin D2) 1,250 50,000 unit PO WEEKLY 01/25/22 10/14/22 History mcg (50,000 unit) capsule gabapentin 800 mg tablet 800 mg PO DAILY 01/25/22 10/14/22 History levothyroxine 100 mcg tablet 100 mcg PO DIRECTED 01/25/22 10/14/22 History lisinopril 10 mg tablet 10 mg PO BID 01/25/22 10/14/22 History prednisone 5 mg tablet 5 mg PO DAILY 01/25/22 10/14/22 History ropinirole 1 mg tablet 1 mg PO HS 01/25/22 10/14/22 History tramadol 50 mg tablet 50 mg PO HS 01/25/22 10/14/22 History trazodone 50 mg tablet 50 mg PO HS 01/25/22 10/14/22 History acetaminophen 500 mg tablet 1,000 mg PO BID 10/14/22 10/14/22 History (Tylenol Extra Str
[2022-10-15] MEDS: SODIUM CHLORIDE 0.9% IV 1,000 ML 125 ML IV CONT ×2 (06:12→20:23)
[2022-10-15] MEDS: LOPERAMIDE HCL 2 MG CAPSULE 4 MG PO (06:13)
[2022-10-15 06:32] LABS: Hematocrit 35.9 % (37.0-47.0); Hemoglobin 11.2 g/dL (12.0-15.0); Mean Corpuscular HGB Conc 31.2 g/dl (32-36); Mean Corpuscular Hemoglobin 30.2 pg (26-34); Mean Corpuscular Volume 96.8 fl (80-100); Mean Platelet Volume 10.3 fl (7.4-10.4); Platelet Count Result 192 k/mm3 (150-375); Red Blood Count 3.71 M/mm3 (4.2-5.4); Red Cell Distribution Width 14.2 % (11.5-14.5); White Blood Count 11.4 K/mm3 (4.5-10.0)
[2022-10-15 06:52] LABS: Anion Gap 5 mmol/L (8-16); Blood Urea Nitrogen 17 mg/dL (7-17); Calcium 7.6 mg/dL (8.4-10.2); Carbon Dioxide 23 mmol/L (22-30); Chloride 111 mmol/L (98-107); Estimated CRCL calculation 32 ml/min; Estimated Glomerular Filt Rate 52; Glucose 92 mg/dL (65-110); Potassium 3.6 mmol/L (3.4-5.0); Sodium 139 mmol/L (137-145)
[2022-10-15 07:58] LABS: Glucose Point of Care 92 mg/dl (65-105)
[2022-10-15] MEDS: CYANOCOBALAMIN 1,000 MCG TABLET 1000 MCG PO (08:45)
[2022-10-15] MEDS: DONEPEZIL HCL 5 MG TABLET PO (08:45)
[2022-10-15] MEDS: predniSONE 5 MG TABLET PO (08:45)
[2022-10-15] MEDS: ACETAMINOPHEN 500 MG TABLET 1000 MG PO ×2 (08:45→17:13)
[2022-10-15] MEDS: GABAPENTIN 400 MG CAPSULE 800 MG PO (08:45)
[2022-10-15] MEDS: HEPARIN SODIUM 5,000 UNITS/ML VIAL 5000 UNITS SUB-Q ×2 (08:46→20:24)
[2022-10-15 11:41] LABS: Glucose Point of Care 104 mg/dl (65-105)
--- NOTE | 2022-10-15 15:06 | WPDPN ---
Progress Note: A&P Assessment and Plan (1) Acute diarrhea: Code(s): R19.7 - Diarrhea, unspecified Status: Acute (2) Sepsis: Qualifiers: Acute renal failure type: unspecified Sepsis acute organ dysfunction status: with acute organ dysfunction Sepsis type: sepsis due to unspecified organism Severe sepsis acute organ dysfunction type: acute renal failure Severe sepsis shock status: without septic shock Qualified Code(s): A41.9 - Sepsis, unspecified organism; R65.20 - Severe sepsis without septic shock; N17.9 - Acute kidney failure, unspecified Code(s): A41.9 - Sepsis, unspecified organism Status: Acute (3) Lactic acidosis: Code(s): E87.2 - Acidosis Status: Acute (4) QUAN (acute kidney injury): Code(s): N17.9 - Acute kidney failure, unspecified Status: Acute (5) Hypotension due to hypovolemia: Code(s): I95.89 - Other hypotension; E86.1 - Hypovolemia Status: Acute (6) Type 2 diabetes mellitus: Qualifiers: Diabetes mellitus senior care insulin use: without intermodal customer service use Diabetes mellitus complication status: with hyperglycemia Qualified Code(s): E11.65 - Type 2 diabetes mellitus with hyperglycemia Code(s): E11.9 - Type 2 diabetes mellitus without complications Status: Acute Plan The patient met sepsis criteria with lactic acidosis, tachycardia, leukocytosis in the setting of presumed infectious diarrhea. Blood cultures are pending. Patient is afebrile. C diff testing that I ordered has returned negative. Stool cultures are pending. Given the patient is still having persistent episodes of multiple loose stools and C diff is negative I will give the patient a dose of Imodium. Source of infection likely viral gastroenteritis verses intoxication of toxic she bacteria. However patient not having bloody stools or such that would indicate E coli. Lactic acidosis has resolved. will repeat CBC in a.m.. Given the patient's completely benign abdominal exam will hold off on performing CT imaging. If symptoms persist greater than 24-48 hours or abdominal pain or other symptoms evolve may consider imaging at that time The patient was hypotensive due to hypovolemia resulting in acute kidney injury. Patient's blood pressures have normalized. Will continue IV fluid hydration. Will repeat BMP in a.m.. Given stabilization of the patient's vital signs will transfer to medical floor. Will resume the patient's home levothyroxine Aricept, Neurontin trazodone and tramadol for chronic neuropathic pain, hypothyroidism mild dementia. Will continue patient's home Requip for restless legs. Patient does have type 2 diabetes mellitus but glucoses are relatively stable given the patient's acute presentation. Will check Accu-Cheks a.c. HS and provide low-dose sliding scale insulin if needed. Hypoglycemia protocol is available if needed. Will continue metformin however extended release is not available by pharmacy will give patient 500 mg daily. 10/15/2022 interval history: 86-year-old female [facility] was found to have several episode or treat diarrhea and incontinence, C diff is negative suspect most likely viral gastroenteritis, upon arrival patient was weak and dizzy most likely secondary to dehydration patient is being hydrated, her bowel movements have improved and clinically patient is stable will continue to monitor, follow-up on a stool culture and further recommendation to follow, will have PT OT evaluate the patient Subjective Date/time seen: 10/15/22 15:06 Interval history: Chief Complaint: HPI-Diarrhea 86-year-old female with a past medical history of mild dementia, hypothyroidism and hypertension who presented to the ER with diarrhea.? The patient reported that symptoms started around 11:00 on the day of presentation.? The patient reports that she was lying in her bed at the assisted living when she suddenly realized that she had been
--- NOTE | 2022-10-15 15:59 | PC.NURSE ---
Received pt from IMU at 16:00. Oriented patient to room and reviewed plan of care.
--- NOTE | 2022-10-15 16:06 | PCPTNOTE ---
On 10/15/22, the student, [Danielle Barrientos], provided care and completed [facility] documentation on this patient. I have reviewed the student's documentation and agree with the findings.
[2022-10-15 17:04] LABS: Glucose Point of Care 91 mg/dl (65-105)
[2022-10-15] MEDS: traMADol HCL (*CRX) 50 MG TABLET PO (20:24)
[2022-10-15] MEDS: AMITRIPTYLINE HCL 25 MG TABLET 75 MG PO (20:25)
[2022-10-15] MEDS: rOPINIRole HCL 1 MG TABLET PO (20:25)
[2022-10-15] MEDS: traZODone HCL 50 MG TABLET PO (20:25)
--- NOTE | 2022-10-15 21:18 | P.PNCROSS_ITS ---
Event Note Event Note Event Note: Call received from the patient's nurse, 1 set of blood cultures is growing Gram- positive cocci in clusters in the aerobic bottle only. Patient's chart was reviewed. She was admitted through the ER yesterday and she has been having diarrhea. C diff was negative. Stool cultures have been obtained and are pending. She is not currently on antibiotics. Vancomycin 1 g ordered. Further management deferred to rounding hospitalist.
[2022-10-16] MEDS: LEVOTHYROXINE SODIUM 100 MCG TABLET PO (06:30)
[2022-10-16] MEDS: traMADol HCL (*CRX) 50 MG TABLET PO (20:25)
[2022-10-16] MEDS: AMITRIPTYLINE HCL 25 MG TABLET 75 MG PO (20:26)
[2022-10-16] MEDS: rOPINIRole HCL 1 MG TABLET PO (20:26)
[2022-10-16] MEDS: traZODone HCL 50 MG TABLET PO (20:27)
[2022-10-16] MEDS: HEPARIN SODIUM 5,000 UNITS/ML VIAL 5000 UNITS SUB-Q (20:27)
[2022-10-16 21:11] VITALS: PULSE 102; O2SAT 94
[2022-10-16 21:24] VITALS: BP 142/81; PULSE 100; RESP 16; TEMP 37.1; O2SAT 95
--- NOTE | 2022-10-16 21:36 | PC.NURSE ---
Paper documentation exists on this patient due to [employer] downtime on 10/16/22 from 0030 to [1930] .
[2022-10-16] MEDS: SODIUM CHLORIDE 0.9% IV 1,000 ML 125 ML IV CONT (22:27)
[2022-10-17 05:26] LABS: Hematocrit 34.2 % (37.0-47.0); Hemoglobin 10.8 g/dL (12.0-15.0); Mean Corpuscular HGB Conc 31.6 g/dl (32-36); Mean Corpuscular Hemoglobin 30.1 pg (26-34); Mean Corpuscular Volume 95.3 fl (80-100); Mean Platelet Volume 9.7 fl (7.4-10.4); Platelet Count Result 190 k/mm3 (150-375); Red Blood Count 3.59 M/mm3 (4.2-5.4); Red Cell Distribution Width 13.9 % (11.5-14.5); White Blood Count 11.1 K/mm3 (4.5-10.0)
[2022-10-17 05:52] LABS: Anion Gap 2 mmol/L (8-16); Blood Urea Nitrogen 7 mg/dL (7-17); Calcium 7.6 mg/dL (8.4-10.2); Carbon Dioxide 25 mmol/L (22-30); Chloride 113 mmol/L (98-107); Estimated CRCL calculation 51 ml/min; Estimated Glomerular Filt Rate > 60; Glucose 85 mg/dL (65-110); Magnesium 1.8 mg/dL (1.6-2.3); Potassium 3.6 mmol/L (3.4-5.0); Sodium 140 mmol/L (137-145)
[2022-10-17] MEDS: LEVOTHYROXINE SODIUM 100 MCG TABLET PO (06:15)
[2022-10-17] MEDS: SODIUM CHLORIDE 0.9% IV 1,000 ML 125 ML IV CONT (06:15)
[2022-10-17 06:35] VITALS: BP 142/89; PULSE 88; RESP 14; TEMP 36.6; O2SAT 96
[2022-10-17] MEDS: HEPARIN SODIUM 5,000 UNITS/ML VIAL 5000 UNITS SUB-Q (08:14)
[2022-10-17] MEDS: ACETAMINOPHEN 500 MG TABLET 1000 MG PO (08:15)
[2022-10-17] MEDS: predniSONE 5 MG TABLET PO (08:15)
[2022-10-17] MEDS: DONEPEZIL HCL 5 MG TABLET PO (08:15)
[2022-10-17] MEDS: CYANOCOBALAMIN 1,000 MCG TABLET 1000 MCG PO (08:15)
[2022-10-17] MEDS: GABAPENTIN 400 MG CAPSULE 800 MG PO (08:16)
[2022-10-17] MEDS: VANCOMYCIN 1,250 MG/NS 250 ML 1,250 MG/250 ML BAG 166.67 MG IVPB (10:04)
[2022-10-17 13:02] LABS: Hematocrit 34.4 % (37.0-47.0); Hemoglobin 10.4 g/dL (12.0-15.0); Mean Corpuscular HGB Conc 30.2 g/dl (32-36); Mean Corpuscular Hemoglobin 29.7 pg (26-34); Mean Corpuscular Volume 98.3 fl (80-100); Mean Platelet Volume 11.1 fl (7.4-10.4); Platelet Count Result 194 k/mm3 (150-375); Red Cell Distribution Width 13.8 % (11.5-14.5); White Blood Count 10.4 K/mm3 (4.5-10.0)
[2022-10-17 14:01] LABS: Anion Gap 0 mmol/L (8-16); Carbon Dioxide 25 mmol/L (22-30); Chloride 115 mmol/L (98-107); Potassium 3.6 mmol/L (3.4-5.0); Sodium 140 mmol/L (137-145)
[2022-10-17 14:02] LABS: Blood Urea Nitrogen 10 mg/dL (7-17); Calcium 7.5 mg/dL (8.4-10.2); Estimated CRCL calculation 50 ml/min; Estimated Glomerular Filt Rate > 60; Glucose 82 mg/dL (65-110)
[2022-10-17 14:23] VITALS: BP 127/72; PULSE 87; RESP 16; TEMP 36.3; O2SAT 97
--- NOTE | 2022-10-17 14:42 | PM.IMPN ---
Progress Note: A&P Assessment and Plan (1) Acute diarrhea: Code(s): R19.7 - Diarrhea, unspecified Status: Acute (2) Sepsis: Qualifiers: Acute renal failure type: unspecified Sepsis acute organ dysfunction status: with acute organ dysfunction Sepsis type: sepsis due to unspecified organism Severe sepsis acute organ dysfunction type: acute renal failure Severe sepsis shock status: without septic shock Qualified Code(s): A41.9 - Sepsis, unspecified organism; R65.20 - Severe sepsis without septic shock; N17.9 - Acute kidney failure, unspecified Code(s): A41.9 - Sepsis, unspecified organism Status: Acute (3) Lactic acidosis: Code(s): E87.2 - Acidosis Status: Acute (4) QUAN (acute kidney injury): Code(s): N17.9 - Acute kidney failure, unspecified Status: Acute (5) Hypotension due to hypovolemia: Code(s): I95.89 - Other hypotension; E86.1 - Hypovolemia Status: Acute (6) Type 2 diabetes mellitus: Qualifiers: Diabetes mellitus residential insulin use: without ad terminal makeup operator use Diabetes mellitus complication status: with hyperglycemia Qualified Code(s): E11.65 - Type 2 diabetes mellitus with hyperglycemia Code(s): E11.9 - Type 2 diabetes mellitus without complications Status: Acute Plan The patient met sepsis criteria with lactic acidosis, tachycardia, leukocytosis in the setting of presumed infectious diarrhea. Blood cultures are pending. Patient is afebrile. C diff testing that I ordered has returned negative. Stool cultures are pending. Given the patient is still having persistent episodes of multiple loose stools and C diff is negative I will give the patient a dose of Imodium. Source of infection likely viral gastroenteritis verses intoxication of toxic she bacteria. However patient not having bloody stools or such that would indicate E coli. Lactic acidosis has resolved. will repeat CBC in a.m.. Given the patient's completely benign abdominal exam will hold off on performing CT imaging. If symptoms persist greater than 24-48 hours or abdominal pain or other symptoms evolve may consider imaging at that time The patient was hypotensive due to hypovolemia resulting in acute kidney injury. Patient's blood pressures have normalized. Will continue IV fluid hydration. Will repeat BMP in a.m.. Given stabilization of the patient's vital signs will transfer to medical floor. Will resume the patient's home levothyroxine Aricept, Neurontin trazodone and tramadol for chronic neuropathic pain, hypothyroidism mild dementia. Will continue patient's home Requip for restless legs. Patient does have type 2 diabetes mellitus but glucoses are relatively stable given the patient's acute presentation. Will check Accu-Cheks a.c. HS and provide low-dose sliding scale insulin if needed. Hypoglycemia protocol is available if needed. Will continue metformin however extended release is not available by pharmacy will give patient 500 mg daily. 10/15/2022 interval history: 86-year-old female addend long-term was found to have several episode or treat diarrhea and incontinence, C diff is negative suspect most likely viral gastroenteritis, upon arrival patient was weak and dizzy most likely secondary to dehydration patient is being hydrated, her bowel movements have improved and clinically patient is stable will continue to monitor, follow-up on a stool culture and further recommendation to follow, will have PT OT evaluate the patient 10/17/2022: 86-year-old long-term resident presented with diarrhea and incontinence. C diff is negative most likely viral gastroenteritis generalized weakness dizziness with initially hypotensive secondary to dehydration. Bowel movement improved. Stool culture negative to date. Hypotension has resolved mild leukocytosis 16 K on admission improved along with lactic acidosis of 3.2 which has resolved. Chest x-ray right basilar at
--- NOTE | 2022-10-17 14:56 | PM.DS ---
DS: Admitting Diagnosis Discharge Date 10/17/2022 Admitting Diagnosis Diarrhea dehydration DS: Discharge Diagnosis Discharge Diagnosis (1) Acute diarrhea: Code(s): R19.7 - Diarrhea, unspecified Status: Acute (2) Sepsis: Qualifiers: Acute renal failure type: unspecified Sepsis acute organ dysfunction status: with acute organ dysfunction Sepsis type: sepsis due to unspecified organism Severe sepsis acute organ dysfunction type: acute renal failure Severe sepsis shock status: without septic shock Qualified Code(s): A41.9 - Sepsis, unspecified organism; R65.20 - Severe sepsis without septic shock; N17.9 - Acute kidney failure, unspecified Code(s): A41.9 - Sepsis, unspecified organism Status: Acute (3) Lactic acidosis: Code(s): E87.2 - Acidosis Status: Acute (4) QUAN (acute kidney injury): Code(s): N17.9 - Acute kidney failure, unspecified Status: Acute (5) Hypotension due to hypovolemia: Code(s): I95.89 - Other hypotension; E86.1 - Hypovolemia Status: Acute (6) Type 2 diabetes mellitus: Qualifiers: Diabetes mellitus terminal carman insulin use: without terminal carman use Diabetes mellitus complication status: with hyperglycemia Qualified Code(s): E11.65 - Type 2 diabetes mellitus with hyperglycemia Code(s): E11.9 - Type 2 diabetes mellitus without complications Status: Acute DS: Summary Hospital Course Hospital Course: 86-year-old senior living resident presented with diarrhea and incontinence. C diff is negative stool cultures been negative to date. Her diarrhea has resolved. most likely viral gastroenteritis. On arrival she also had generalized weakness dizziness with initially hypotensive secondary to dehydration. Hypotension has resolved mild leukocytosis 16 K on admission improved along with lactic acidosis of 3.2 which has resolved. There is associated QUAN on admission. Which has resolved by the time of discharge. Chest x-ray right basilar atelectasis/consolidation possible small right pleural effusion blood culture on admission finalize the Staph hominis. Repeat blood culture obtained 10/16/2022 pending likely a contamination will stop vancomycin IV Hypothyroidism/neuropathy pain/mild dementia and remains on chronic medication Time Spent with Patient Time attestation: Total time spent providing and/or coordinating discharge services: 35 minutes Exam Narrative: Elderly frail Patient is comfortable, NAD HEENT: eyes are clear and none icteric LUNGS:? Normal respiratory effort ABD:? Not distended Lower extremities: no edema SKIN: nonjaundiced Neuro: grossly intact. DS: Data Data Completed and Pending Labs on day of discharge: Labs from last 24 hours 10/17/22 10/16/22 05:21 05:15 WBC 11.1 H 10.4 H RBC 3.59 L 3.50 L Hgb 10.8 L 10.4 L Hct 34.2 L 34.4 L MCV 95.3 98.3 MCH 30.1 29.7 MCHC 31.6 L 30.2 L RDW 13.9 13.8 Plt Count 190 194 MPV 9.7 11.1 H Sodium 140 140 Potassium 3.6 3.6 Chloride 113 H 115 H Carbon Dioxide 25 25 Anion Gap 2 L 0 L BUN 7 10 D Creatinine 0.60 L 0.70 Estim Creat Clear Calc 51 50 Estimated GFR > 60 > 60 Glucose 85 82 Calcium 7.6 L 7.5 L Magnesium 1.8 2.0 Preliminary micro results at discharge 10/14/22 17:09 Blood Culture - Preliminary Blood Staphylococcus hominis 10/14/22 18:00 Blood Culture - Preliminary Blood Imaging Radiologist's impression: ITS Impressions Chest X-Ray 10/14/22 18:01 IMPRESSION: Right basilar atelectasis/consolidation. Possible small right pleural effusion. Discharge Plan Discharge Attending physician on discharge: Elias Vasquez Consulting providers: Lena Oconnell Discharging Clinician: Elias Vasquez Anticipated Discharge Date/Time: 10/17/22 14:58 Patient Disposition: NH Shelter/Asst Living Activity: as tolerated Diet: heart healthy Patie
== END 2022-10-17 15:50 | DRG 872 ==
LOC: ANHED 19:21 → ANHIMU 20:00 → ANH2MED 10-15 15:52
PROVIDERS: Family Medicine; Internal Medicine; Admitting Provider Internal Medicine; Emergency Provider Emergency Medicine; Visit Provider Internal Medicine
DX: A41.9 Sepsis, unspecified organism (principal); N17.9 Acute kidney failure, unspecified; J90 Pleural effusion, not elsewhere classified; E87.21 Acute metabolic acidosis; R65.20 Severe sepsis without septic shock; A08.4 Viral intestinal infection, unspecified; I95.89 Other hypotension; E86.1 Hypovolemia; D64.9 Anemia, unspecified; E86.0 Dehydration; E11.65 Type 2 diabetes mellitus with hyperglycemia; E03.9 Hypothyroidism, unspecified; E11.42 Type 2 diabetes mellitus with diabetic polyneuropathy; F03.90 Unspecified dementia, unspecified severity, without behavioral disturbance, psychotic disturbance, mood disturbance, and anxiety; G25.81 Restless legs syndrome; Z96.653 Presence of artificial knee joint, bilateral; Z87.891 Personal history of nicotine dependence
CPT/HCPCS: 36415; 71045; 80048; 80053; 81003; 82948; 83605; 83735; 85025; 85027; 85610; 85730; 86140; 87040; 87045; 87081; 87147; 87181; 87186; 87269; 87272; 87427; 87493; 93005; 96360; 96361; 96374; 97161; 97165; 99285; A9270; G0378; J1644; J3370; J7030; J7512

== ENCOUNTER 2023-02-21 00:30 | Emergency (ER) | payer MEDICARE, SELFPAY ==
[2023-02-21] VITALS (21 sets, daily range): BP systolic 87–132; BP diastolic 51–72; PULSE 79–101; RESP 13–23; TEMP 36.8; O2SAT 95–100
--- NOTE | 2023-02-21 02:03 | ECG_ITS ---
Measurements Intervals [place] Rate: 84 P: 37 ME: 240 QRS: 35 QRSD: 81 T: 19 QT: 346 QTc: 411 Interpretive Statements SINUS RHYTHM WITH FIRST DEGREE AV BLOCK ABNORMAL ECG COMPARED TO ECG 10/14/2022 16:44:06 ME INTERVAL IS LONGER Electronically Signed On 02-22-2023 8:44:08 CDT by Porfirio Mesa M.D.
--- NOTE | 2023-02-21 04:15 | ED.GENADULT ---
HPI - General Adult General Chief complaint: Unspecified Stated complaint: low bp Time Seen by Provider: 02/21/23 03:44 History of Present Illness HPI narrative: Patient is a 87-year-old female who presents the emergency department with chief complaint of low blood pressure patient reports that she may have taken an extra dose of her blood pressure medications this evening and reports that her blood pressure was running in the 90s and was instructed to come to the emergency department from the facility where she lives at. Patient denies chest pain denies shortness of breath denies any other complaints. Related Data Home Medications Medication Instructions Recorded Confirmed amitriptyline 75 mg tablet 75 mg PO HS 01/25/22 10/14/22 cyanocobalamin (vitamin B-12) 1,000 mcg PO DAILY 01/25/22 10/14/22 1,000 mcg tablet donepezil 5 mg tablet 5 mg PO DAILY 01/25/22 10/14/22 ergocalciferol (vitamin D2) 1,250 50,000 unit PO WEEKLY 01/25/22 10/14/22 mcg (50,000 unit) capsule gabapentin 800 mg tablet 800 mg PO DAILY 01/25/22 10/14/22 levothyroxine 100 mcg tablet 100 mcg PO DIRECTED 01/25/22 10/14/22 lisinopril 10 mg tablet 10 mg PO BID 01/25/22 10/14/22 prednisone 5 mg tablet 5 mg PO DAILY 01/25/22 10/14/22 ropinirole 1 mg tablet 1 mg PO HS 01/25/22 10/14/22 tramadol 50 mg tablet 50 mg PO HS 01/25/22 10/14/22 trazodone 50 mg tablet 50 mg PO HS 01/25/22 10/14/22 acetaminophen 500 mg tablet 1,000 mg PO BID 10/14/22 10/14/22 (Tylenol Extra Strength) Allergies Allergy/AdvReac Type Severity Reaction Status Date / Time No Known Allergies Allergy Unknown Verified 01/25/22 07:28 Review of Systems Review of Systems: A 10 system review of systems was completed on the patient and is negative except for what is stated in the HPI. Nursing and ancillary documentation was reviewed. [facility] Past Medical History Medical History Anemia Dementia Hypertension Hypothyroidism Macular degeneration Neuropathy Pneumonia Restless leg syndrome Type 2 diabetes mellitus Vitamin D deficiency Surgical History Surgical History H/O cataract extraction H/O colonoscopy H/O: hemorrhoidectomy H/O: hysterectomy History of back surgery History of bilateral knee replacement History of bladder suspension procedure Family History Family History Father Typhoid fever Sibling Throat cancer Brother Acute myocardial infarction Sister Mother Stomach cancer Social History Social History Smoking status: Former smoker Alcohol intake: never Substance use: never Substance use type: does not use Lack of Transportation: No Lack of Food: Never True Current Housing: Decline to Answer Concerned About Future Housing: Decline to Answer Difficulty Paying Gas/Electric Bills: Decline to Answer Difficulty Paying for Meds: Decline to Answer Currently Unemployed: Decline to Answer Education: Decline to Answer Difficulty w/ Childcare or Family Care: Decline to Answer Spiritual care concerns: No Exam Narrative: GENERAL: Well-appearing, well-nourished, and in no acute distress. HEAD: Normocephalic, atraumatic. EYES: PERRLA and EOMI. ENT: Nares clear, no rhinorrhea or epistaxis. Mucous membranes moist. NECK: Supple. CHEST: Clear to auscultation. No respiratory distress. HEART: Regular rate and rhythm. No murmur heard. Normal peripheral pulses. ABDOMEN: Soft, nontender, nondistended, normal active bowel sounds. EXTREMITIES: Normal range of motion. No edema. SKIN: Warm, dry, no rash. NEURO: No focal deficits. Alert and oriented x3. PSYCH: Normal mood and affect. Course Vital Signs Vital signs: Vital Signs Temperature 36.8 C 02/21/23 00:34 Pulse R
[2023-02-21 04:29] LABS: Alanine Aminotransferase 17 U/L (6-35); Albumin Level 3.2 g/dL (3.5-5.1); Alkaline Phosphatase 39 U/L (38-126); Anion Gap 6 mmol/L (8-16); Aspartate Amino Transferase 21 U/L (14-36); Bilirubin,Total 0.3 mg/dL (0.2-1.3); Blood Urea Nitrogen 23 mg/dL (7-17); Calcium 8.2 mg/dL (8.4-10.2); Carbon Dioxide 24 mmol/L (22-30); Chloride 106 mmol/L (98-107); Estimated CRCL calculation 28 ml/min; Estimated Glomerular Filt Rate 47; Glucose 84 mg/dL (65-110); Potassium 3.8 mmol/L (3.4-5.0); Sodium 136 mmol/L (137-145); Troponin I < 0.012 ng/mL (0.000-0.034)
[2023-02-21 04:30] LABS: Lactic Acid Reflex 1.6 mmol/L (0.7-2.0)
[2023-02-21 04:33] LABS: Hematocrit 37.8 % (37.0-47.0); Hemoglobin 11.9 g/dL (12.0-15.0); Mean Corpuscular HGB Conc 31.5 g/dl (32-36); Mean Corpuscular Hemoglobin 29.8 pg (26-34); Mean Corpuscular Volume 94.7 fl (80-100); Mean Platelet Volume 11.2 fl (7.4-10.4); Platelet Count Result 225 k/mm3 (150-375); Red Blood Count 3.99 M/mm3 (4.2-5.4); Red Cell Distribution Width 14.3 % (11.5-14.5); White Blood Count 11.7 K/mm3 (4.5-10.0)
[2023-02-21 04:37] LABS: Basophils Absolute Auto 0.1 K/mm3 (0.0-0.1); Basophils Percent Auto 0.7 % (0.2-1.2); Eosinophils Absolute Auto 0.2 K/mm3 (0-0.3); Eosinophils Percent Auto 2.1 % (0-4.4); Immature Granulocyte Absolute 0.04 K/mm3 (0.00-0.031); Immature Granulocyte Percent A 0.4 % (0-0.5); Lymphocytes Absolute Auto 3.26 K/mm3 (0.9-3.2); Lymphocytes Percent Auto 28.8 % (18.3-44.2); Monocytes Absolute Auto 1.2 K/mm3 (0.1-0.6); Monocytes Percent Auto 10.4 % (2.6-8.5); Neutrophils Absolute Auto 6.5 K/mm3 (1.3-6.7); Neutrophils Percent Auto 57.6 % (45.5-73.1)
[2023-02-21 04:47] LABS: Appearance Urine Cloudy (Clear); Bacteria Urine Rare /hpf; Bilirubin Urine Negative (Negative); Blood Urine Negative (Negative); Color Urine Yellow (Yellow); Glucose Urine UA Negative (Negative); Hyaline Casts Urine Present /lpf; Ketones Urine Trace mg/dL (Negative); Leukocyte Esterase Ur 2+ LEU/UL (Negative); Nitrate Urine Negative (Negative); Protein Urine Negative (Negative); RBC Urine 0-2 /hpf (0-2); Specific Grav Ur 1.022 (1.001-1.035); Squamous Epithelial Cell Urine Many /hpf (Few); WBC Urine 51-100 /hpf; pH Urine 5.5 (5.0-9.0)
[2023-02-21 04:48] LABS: Add Urine Microscopic? YES
[2023-02-21] MEDS: CEPHALEXIN 500 MG CAPSULE PO (05:23)
== END 2023-02-21 05:50 ==
PROVIDERS: Emergency Provider Emergency Medicine
DX: N39.0 Urinary tract infection, site not specified (principal); T50.901A Poisoning by unspecified drugs, medicaments and biological substances, accidental (unintentional), initial encounter; I95.9 Hypotension, unspecified; E11.40 Type 2 diabetes mellitus with diabetic neuropathy, unspecified; I10 Essential (primary) hypertension; E03.9 Hypothyroidism, unspecified; F03.90 Unspecified dementia, unspecified severity, without behavioral disturbance, psychotic disturbance, mood disturbance, and anxiety; D64.9 Anemia, unspecified; H35.30 Unspecified macular degeneration; E55.9 Vitamin D deficiency, unspecified; G25.81 Restless legs syndrome; Z87.891 Personal history of nicotine dependence
CPT/HCPCS: 36415; 80053; 81001; 83605; 84484; 85025; 87086; 87088; 93005; 99284; A9270; J7030